=== PATIENT | female | born 2000 | race American Indian/Alaskan Native ===

== ENCOUNTER 2019-10-23 22:21 | Emergency (ER) | payer OTHER ==
[2019-10-23 22:51] VITALS: BP 112/70
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
[2019-10-24] MEDS ORDERED: ACETAMINOPHEN 325 MG TAB PO ONE (01:50)
[2019-10-24] MEDS ORDERED: IBUPROFEN 600 MG TAB PO ONE (01:50)
== END 2019-10-24 02:23 | disposition home or self-care (01) ==
LOC: ED 22:21
DX: S46.911A Strain of unspecified muscle, fascia and tendon at shoulder and upper arm level, right arm, initial encounter (principal); M62.830 Muscle spasm of back; V89.2XXA Person injured in unspecified motor-vehicle accident, traffic, initial encounter; Y93.89 Activity, other specified; Y92.410 Unspecified street and highway as the place of occurrence of the external cause; Y99.8 Other external cause status
CPT/HCPCS: 99282